=== PATIENT | female | born 1990 | race Caucasian/White ===

== ENCOUNTER 2020-05-23 18:15 | Inpatient (IN) | payer OTHER ==
[~2020-05-23] VITALS: Ht 170.2 cm; Wt 88.5 kg
--- NOTE | 2020-05-24 06:57 | PR ---
[facility] [address] [facility] [place], [place] [address] Signed Progress Notes IP Datetime Report Generated by CPN: 05/24/2020 06:57 PROGRESS NOTES: [id number] Impression: Reassuring Heart Rate Other Procedures: ROM attempt unsuccessful Plan: Augmentation VITAL SIGNS: [id number] Vital Signs: Reviewed; Within Normal Limits EXAM: [id number] Dilatation: 4.0 Effacement: 70 Station: -3 Contractions: q4-8 min MEMBRANES: [id number] Comments: 30 yo at 38.5, presented for spontaneous labor -Vancomycin for GBS prophylaxis, pruritic reaction so rate decreased to half original rate and premedication with benadryl - FETUS A: [id number] FHR Baseline: 125 Variability: Moderate 6-25bpm Accelerations: 15X15 Decelerations: None FHR Category: Category I Presentation: Vertex Comments on Fetus A: No evidence of acidosis FETUS B: [id number] Signing Physician: Chacorta Frankel DO Copies: ~ *Electronically Signed* 05/24/20 0657 CHACORTA FRANKEL DO PATIENT NAME: NAT BRUCE PROGRESS NOTE DATE OF : [birth year] PHYSICIAN: CHACORTA FRANKEL DO RPT #: [id number] REPORT IS CONFIDENTIAL AND NOT TO BE RELEASED WITHOUT AUTHORIZATION
--- NOTE | 2020-05-24 11:06 | PR ---
[facility] [address] [place], [place] [address] Signed Progress Notes IP Datetime Report Generated by CPN: 05/24/2020 11:06 PROGRESS NOTES: [id number] Impression: Normal Progression of Labor; Reassuring Heart Rate; Rupture of Membranes Procedures: Artificial ROM; Intrauterine Pressure Catheter; Scalp Electrode Other Procedures: ROM attempt unsuccessful Plan: Continue Present Management; Anticipate Vaginal Delivery VITAL SIGNS: [id number] Vital Signs: Reviewed; Within Normal Limits EXAM: [id number] Dilatation: 5.0 Effacement: 80 Station: -3 Contractions: q4-8 min MEMBRANES: [id number] Membranes Status: Ruptured Comments: Progressing well.Comfortable with epidural. Amniotomy performed without difficulty yielding moderate amount of clear fluid, IUPC and FSE easily placed. Continue pitocin, anticipate FETUS A: [id number] FHR Baseline: 125 Variability: Moderate 6-25bpm Accelerations: 15X15 Decelerations: None FHR Category: Category I Presentation: Vertex Comments on Fetus A: No evidence of acidosis FETUS B: [id number] Signing Physician: Chacrota Frankel DO Copies: ~ *Electronically Signed* 05/24/20 1106 CHACORTA FRANKEL DO PATIENT NAME: NAT BRUCE PROGRESS NOTE DATE OF : 90 PHYSICIAN: CHACORTA FRANKEL #: [id number] REPORT IS CONFIDENTIAL AND NOT TO BE RELEASED WITHOUT AUTHORIZATION
--- NOTE | 2020-05-24 13:13 | PR ---
[facility] [address] [facility] [place], [place] [address] Signed Progress Notes IP Datetime Report Generated by CPN: 05/24/2020 13:13 PROGRESS NOTES: [id number] Impression: Normal Progression of Labor; Reassuring Heart Rate Procedures: Sterile Vag Exam Other Procedures: ROM attempt unsuccessful Plan: Continue Present Management; Anticipate Vaginal Delivery VITAL SIGNS: [id number] Vital Signs: Reviewed; Within Normal Limits EXAM: [id number] Dilatation: 8.0 Effacement: 90 Station: -2 Contractions: q4-8 min MEMBRANES: [id number] Membranes Status: Ruptured Comments: Progressing well. Comfortable with epidural, not feeling contraction pain or urge to push. Anticipate FETUS A: [id number] FHR Baseline: 125 Variability: Moderate 6-25bpm Accelerations: 15X15 Decelerations: None FHR Category: Category I Presentation: Vertex Comments on Fetus A: No evidence of acidosis FETUS B: [id number] Signing Physician: Chacorta Frankel DO Copies: ~ *Electronically Signed* 05/24/20 1313 CHACORTA FRANKEL DO PATIENT NAME: NAT BRUCE PROGRESS NOTE DATE OF : 90 PHYSICIAN: CHACORTA FRANKEL #: [id number] REPORT IS CONFIDENTIAL AND NOT TO BE RELEASED WITHOUT AUTHORIZATION
== END 2020-05-25 17:15 | disposition home or self-care (01) | DRG 807 ==
LOC: FBCO 18:15 → FBC 21:00
PROVIDERS: ADMIT Obstetrics & Gynecology; ATTEND Obstetrics & Gynecology
PROC: 10E0XZZ Delivery of Products of Conception, External Approach (ICD-10-PCS; principal; 2020-05-24)
PROC: 0UQKXZZ Repair Hymen, External Approach (ICD-10-PCS; 2020-05-24)
PROC: 10H07YZ Insertion of Other Device into Products of Conception, Via Natural or Artificial Opening (ICD-10-PCS; 2020-05-24)
PROC: 10907ZC Drainage of Amniotic Fluid, Therapeutic from Products of Conception, Via Natural or Artificial Opening (ICD-10-PCS; 2020-05-24)
PROC: 00HU33Z Insertion of Infusion Device into Spinal Canal, Percutaneous Approach (ICD-10-PCS; 2020-05-24)
PROC: 3E0R3BZ Introduction of Anesthetic Agent into Spinal Canal, Percutaneous Approach (ICD-10-PCS; 2020-05-24)
DX: O99.824 Streptococcus B carrier state complicating childbirth (principal); Z37.0 Single live birth; O99.62 Diseases of the digestive system complicating childbirth; K21.9 Gastro-esophageal reflux disease without esophagitis; O9A.213 Injury, poisoning and certain other consequences of external causes complicating pregnancy, third trimester; L29.9 Pruritus, unspecified; T36.8X5A Adverse effect of other systemic antibiotics, initial encounter; O70.0 First degree perineal laceration during delivery; Z3A.38 38 weeks gestation of pregnancy; Z87.891 Personal history of nicotine dependence; Z86.19 Personal history of other infectious and parasitic diseases; Z88.0 Allergy status to penicillin; Z88.1 Allergy status to other antibiotic agents; Z79.899 Other long term (current) drug therapy
CPT/HCPCS: 59025; 85027; 99213; J1200; J2590; J3370; J7060; J7121

== ENCOUNTER 2020-09-22 05:45 | Day surgery (SDC) | payer OTHER ==
[~2020-09-22] VITALS: Ht 182.9 cm; Wt 73.6 kg
[2020-09-22] MEDS ORDERED: OMEPRAZOLE20 MG PO (05:51)
--- NOTE | 2020-09-22 10:09 | NUR ---
PT ALERT, ORIENTED AND SUPPORTED BY HER DANIEL. PT'S PROCEDURE DELAYED DUE TO DR NEEDED IN [facility]. COPING APPROPRIATELY WITH DELAY. ALL QUEST[facility] ASKED ANSWERED. PT REQUESTED PRAYER, WILL FOLLOW
--- NOTE | 2020-09-22 10:14 | NUR ---
PATIENT UPDATED ON SURGICAL SCHEDULE. SHE AND HER SPOUSE ARE NAPPING AND VERBALIZE UNDERSTANDING OF THE DELAY.
--- NOTE | 2020-09-22 13:16 | NUR ---
09/22/20 1316 Toma Young 1312- PT ARRIVES TO PACU NONAROUSABLE TO NOXIOUS STIMULI WITH AN OPA IN PLACE. RESP EVEN AND UNLABORED. OXYGEN SAT HIGH 90'S TO 100% ON 6L VIA MASK.
--- NOTE | 2020-09-22 13:43 | NUR ---
SPOUSE AT THE BEDSIDE. ICED WATER GIVEN. CALL LIGHT WITHIN REACH.
[2020-09-22] MEDS ORDERED: KETOROLAC TROME10 MG PO (14:47)
--- NOTE | 2020-09-22 15:31 | NUR ---
1500 AMB TO BR WELL. VOIDS 100MLS PINK URINE. READY TO GO HOME.
--- NOTE | 2020-09-24 11:31 | OR ---
[address] [address] Signed DATE OF OPERATION: 09/22/2020 SURGEON: Chacorta Frankel DO PROCEDURE: Procedure: Cold knife cone, endocervical curettage. SURGEON: Chacorta Frankel DO EXECUTIVE ADMINISTRATIVE ASSISTANT: BETTY Hernandez DO ESTIMATED BLOOD LOSS: 25 mL. SPECIMEN: Cervical cone biopsy suture in the 12 o'clock position, endocervical currettings LINES: None. DRAINS: None. COMPLICATIONS: None. ANESTHESIA: Monitored anesthesia care. FINDINGS: Normal-appearing external genitalia and vagina. Abnormal uptake of Lugol solution on ectocervix, particularly in 3 o'clock position. Otherwise, normal-appearing cervix. No abnormal uptake of Lugol solution in vagina. INDICATIONS: The patient is a 30-year-old, G2, P2, who presented for followup of JACQUI 3, which was discovered during . Biopsies were significant for adenocarcinoma in Electronically Signed By: CHACORTA FRANKEL DO 09/24/20 1131 PATIENT NAME: NAT BRUCE OPERATIVE REPORT DATE OF : [birth year] REPORT #: [id number] PHYSICIAN: CHACORTA FRANKEL DO PCP: UNASSIGNED DOCTOR REPORT IS CONFIDENTIAL AND NOT TO BE RELEASED WITHOUT AUTHORIZATION [address] [address] Signed situ at the 3 o'clock position. Risks, benefits, and alternatives to cold knife cone with endocervical curettage were discussed and she elected to proceed. DESCRIPTION OF PROCEDURE: The patient was taken to the operating room, where she was placed under anesthesia and positioned in dorsal lithotomy position. Bladder was straight catheterized, and she was prepped and draped in normal sterile fashion. Weighted speculum was inserted. Hensley retractor was used with excellent visualization of the cervix. Stay sutures were placed in the 3 and 9 o'clock positions, suture ligating cervical arteries with 0-chromic. Marcaine 1% with epinephrine was injected at the cervicovaginal junction around the clock face, 10mL total, and the cervix was dilated without difficulty. Uterus was sounded to 7.5 cm. An 11 blade scalpel was used to score the ectocervix circumferentially. This was then carried deeper in a conical manner with a straight and angled scalpel, fully excising the cone from the cervix. Stitch of silk was placed in the 12 o'clock position of the surgical biopsy. Cautery of the cervix was then performed with ball-tip cautery with moderate hemostasis. Surgical foam was placed and sutured into place for compression with resulting hemostasis. The patient was taken to the recovery room with plans for in office follow up to discuss pathology next week. All sponge and instrument counts were correct x2. DO EVELYN CormierZ/MODL /[id number] Copies: ~ Electronically Signed By: CHACORTA FRANKEL DO 09/24/20 1131 PATIENT NAME: TEONAT OPERATIVE REPORT DATE OF : [birth year] REPORT #: [id number] PHYSICIAN: CHACORTA FRANKEL DO PCP: UNASSIGNED DOCTOR REPORT IS CONFIDENTIAL AND NOT TO BE RELEASED WITHOUT AUTHORIZATION
--- NOTE | 2020-09-28 11:37 | PATH ---
[facility] [address] [place], [place] [address] Signed SPECIMEN(S): A CERVIX, STITCH AT 12 O'CLOCK SPECIMEN(S): B ENDOCERVICAL CURETTINGS SPECIMEN SOURCE: A. CERVIX, STITCH AT 12 O'CLOCK B. 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 FINAL PATHOLOGIC DIAGNOSIS: A. Cervix, cold knife cone biopsy: - Endocervical adenocarcinoma in situ (AIS). - Negative for invasive carcinoma. - Surgical margins negative for AIS. B. Endocervix, curettage: - Detached endocervical glands with no histopathologic abnormality. - Weakly proliferative-appearing endometrium with focal stromal breakdown. COMMENT: As part of [facility]' Quality Improvement Program, this case was reviewed by another member of our pathology staff. NAL:cml:C2NR MICROSCOPIC EXAMINATION: Histologic sections of all submitted blocks are examined by light microscopy. These findings, together with the gross examination, support the pathologic diagnosis. GROSS DESCRIPTION: Two specimens are received in two containers, labeled "AH." A. The specimen, labeled "AH, A.," and designated on the requisition "cold knife cone biopsy, stitch at 12 o'clock," is received in formalin and consists of a cervical cone biopsy (2.6 x 2.2 x 2.0 cm) with pink-alonso to hemorrhagic, irregular cervical mucosa and a stitch marking 12 o'clock. The ectocervical edge is inked black and the stromal margin is inked blue. The specimen is radially sectioned and submitted entirely as follows: Cassette Summary: (A1-A2) 12 o'clock to 3 o'clock (A3) 3 o'clock to 6 o'clock PATIENT NAME: NAT BRUCE PATHOLOGY DATE OF : [birth year] REPORT #: [id number] PHYSICIAN: NAHEED PATHOLOGY PCP: UNASSIGNED DOCTOR REPORT IS CONFIDENTIAL AND NOT TO BE RELEASED WITHOUT AUTHORIZATION [facility] [address] [place] [address] Signed (A4-A5) 6 o'clock to 9 o'clock (A6-A7) 9 o'clock to 12 o'clock B. The specimen, labeled "AH, B.," and designated on the requisition "endocervical curettage," is received in formalin and consists of multiple fragments of pink-alonso to hemorrhagic soft tissue (0.7 x 0.4 x 0.1 cm in aggregate). The specimen is submitted entirely in cassette (B1). AC (under the direct supervision of a pathologist) The Gross Description was prepared using a voice recognition system. The report was reviewed for accuracy; however, sound-alike word errors, addition and/or deletions may occur. If there is any question about this report, please contact Client Services. PERFORMING LABORATORY: The technical component was performed by [facility], [address] [place] [id number] (Allergist Immunologist: Tatyana Cash MD; CLIA# [id number]). [facility], [address] [address] (CLIA# [id number]). Diagnostician: Sara Gamble MD Pathologist Electronically Signed 09/28/2020 Copies: ~ PATIENT NAME: NAT BRUCE PATHOLOGY DATE OF : [birth year] REPORT #: [id number] PHYSICIAN: NAHEED PATHOLOGY PCP: UNASSIGNED DOCTOR REPORT IS CONFIDENTIAL AND NOT TO BE RELEASED WITHOUT AUTHORIZATION
== END 2020-09-22 15:10 | disposition home or self-care (01) ==
LOC: OPS 05:45 → DS 05:45 → OPS 07:30 → DS 10:45 → OPS 15:10
PROVIDERS: ATTEND Obstetrics & Gynecology
PROC: 0UBC7ZX Excision of Cervix, Via Natural or Artificial Opening, Diagnostic (ICD-10-PCS; principal; 2020-09-22 07:30)
DX: C53.0 Malignant neoplasm of endocervix (principal); K21.9 Gastro-esophageal reflux disease without esophagitis; Z79.899 Other long term (current) drug therapy; Z88.0 Allergy status to penicillin; Z88.1 Allergy status to other antibiotic agents; Z88.8 Allergy status to other drugs, medicaments and biological substances; Z87.442 Personal history of urinary calculi; Z20.822 Contact with and (suspected) exposure to COVID-19
CPT/HCPCS: 00940; J1100; J1885; J2250; J2405; J2704; J2765; J3010; J7121